=== PATIENT | female | born 1975 | race Asian ===

== ENCOUNTER 2016-10-17 14:27 | Outpatient (CLI) | payer OTHER | END 2016-10-17 17:59 | disposition home or self-care (01) | LOC: SUS 14:27 | PROVIDERS: ATTEND Internal Medicine Geriatric Medicine | DX: E04.2 Nontoxic multinodular goiter (principal) | CPT/HCPCS: 76536-TC ==

== ENCOUNTER 2017-07-24 12:52 | Outpatient (CLI) | payer OTHER | END 2017-07-24 20:57 | disposition home or self-care (01) | LOC: SUS 12:52 | PROVIDERS: ATTEND Internal Medicine Geriatric Medicine | DX: E04.2 Nontoxic multinodular goiter (principal) | CPT/HCPCS: 76536-TC ==

== ENCOUNTER 2018-11-20 11:49 | Emergency (ER) | payer OTHER ==
[~2018-11-20] VITALS: Ht 157.5 cm; Wt 60.8 kg
[2018-11-20 12:11] VITALS: BP_SYST 161
--- NOTE | 2018-11-20 13:21 | NUR ---
Patient to ER bed 4 to gown for evaluation. Side rails up. Report given to Spencer STARK.
--- NOTE | 2018-11-20 13:22 | NUR ---
C/O bilat flank pain with lower abd pain 3 days after having dysuria which resolved without treatment. Bilat CVA tenderness. Pain not worsened with movement.
--- NOTE | 2018-11-20 13:30 | NUR ---
ER Dr. Capellan at bedside examining patient.
[2018-11-20 14:00] VITALS: BP_SYST 161
--- NOTE | 2018-11-20 14:00 | NUR ---
Patient given written and verbal discharge instructions and verbalizes understanding. ER MD discussed with patient the results and treatment provided. Patient in stable condition. ID arm band removed. Rx of Keflex and ibuprofen given. Patient educated on pain management and to follow up with PMD. Opportunity for questions provided and answered. Medication side effect fact sheet provided.
== END 2018-11-20 14:00 | disposition home or self-care (01) ==
LOC: SED 11:49
DX: N39.0 Urinary tract infection, site not specified (principal)
CPT/HCPCS: 81002; 81025; 99283

== ENCOUNTER 2020-08-23 09:49 | Outpatient (CLI) | payer OTHER | END 2020-08-23 20:19 | disposition home or self-care (01) | LOC: SUS 09:49 | DX: Z12.31 Encounter for screening mammogram for malignant neoplasm of breast (principal); E04.1 Nontoxic single thyroid nodule | CPT/HCPCS: 76536-TC; 77067 ==